=== PATIENT | female | born 1955 | race Caucasian/White ===

== ENCOUNTER → 2020-10-14 15:03 | Outpatient (BNVA) | payer OTHER, MEDICARE, SELFPAY | PROVIDERS: PCP Internal Medicine; Visit Provider Internal Medicine | DX: M54.12 Radiculopathy, cervical region (principal); G89.3 Neoplasm related pain (acute) (chronic) | CPT/HCPCS: 99202 ==

== ENCOUNTER → 2020-11-01 11:31 | Outpatient (BNVA) | payer OTHER, SELFPAY | PROVIDERS: PCP Internal Medicine; Visit Provider Internal Medicine | DX: G89.3 Neoplasm related pain (acute) (chronic) (principal) | CPT/HCPCS: 99212 ==

== ENCOUNTER → 2020-11-15 11:09 | Outpatient (BNVA) | payer OTHER, SELFPAY | PROVIDERS: Visit Provider Internal Medicine | DX: G89.3 Neoplasm related pain (acute) (chronic) (principal); Z51.81 Encounter for therapeutic drug level monitoring; Z79.891 Long term (current) use of opiate analgesic; R21 Rash and other nonspecific skin eruption | CPT/HCPCS: 99212 ==

== ENCOUNTER → 2020-12-20 11:43 | Outpatient (BNVA) | payer OTHER, SELFPAY | PROVIDERS: Visit Provider Internal Medicine ==

== ENCOUNTER → 2021-01-17 11:15 | Outpatient (BNVA) | payer OTHER, SELFPAY | PROVIDERS: PCP Nurse Practitioner; Visit Provider Internal Medicine | DX: Z51.81 Encounter for therapeutic drug level monitoring (principal); G89.3 Neoplasm related pain (acute) (chronic) | CPT/HCPCS: 99212 ==

== ENCOUNTER → 2021-02-14 08:46 | Outpatient (BNVA) | payer OTHER, SELFPAY | PROVIDERS: PCP Nurse Practitioner; Visit Provider Internal Medicine | DX: Z51.81 Encounter for therapeutic drug level monitoring (principal); G89.3 Neoplasm related pain (acute) (chronic) | CPT/HCPCS: 99212 ==

== ENCOUNTER → 2021-03-21 09:49 | Outpatient (BNVA) | payer OTHER, SELFPAY | PROVIDERS: PCP Nurse Practitioner; Visit Provider Internal Medicine | DX: Z51.81 Encounter for therapeutic drug level monitoring (principal); F11.20 Opioid dependence, uncomplicated; M54.12 Radiculopathy, cervical region; G89.3 Neoplasm related pain (acute) (chronic) | CPT/HCPCS: 99212 ==

== ENCOUNTER → 2021-04-11 10:15 | Outpatient (BNVA) | payer OTHER, SELFPAY | PROVIDERS: PCP Nurse Practitioner; Visit Provider Internal Medicine | DX: F11.20 Opioid dependence, uncomplicated (principal); M54.12 Radiculopathy, cervical region; G89.3 Neoplasm related pain (acute) (chronic); C34.90 Malignant neoplasm of unspecified part of unspecified bronchus or lung; C44.92 Squamous cell carcinoma of skin, unspecified | CPT/HCPCS: 99212 ==